=== PATIENT | male | born 1965 | race Two or more races ===

== ENCOUNTER 2018-06-22 16:51 | Inpatient (IN) | payer OTHER ==
[2018-06-22 21:46] VITALS: BMI 22.6
[2018-06-22] MEDS ORDERED: MELATONIN 5 MG TABLETS PO PRN (22:00)
[2018-06-22] MEDS ORDERED: P-EPHED 60MG/TRIPROLIDI 2.5MG TABLET PO PRN (22:03)
[2018-06-22] MEDS ORDERED: chlordiazePOXIDE HCL 25 MG CAPSULE PO PRN (22:03)
[2018-06-22] MEDS ORDERED: LOPERAMIDE HCL 2 MG CAPSULE PO PRN (22:03)
[2018-06-22] MEDS ORDERED: hydrOXYzine PAMOATE 50 MG CAPSULE (FP) PO PRN (22:03)
[2018-06-22] MEDS ORDERED: MAGNESIUM HYDROX 2400MG/30ML ORAL SUSPENSION 30 ML CUP PO PRN (22:03)
[2018-06-22] MEDS ORDERED: ACETAMINOPHEN 325 MG TABLET (FP) PO PRN (22:03)
[2018-06-22] MEDS ORDERED: MENTHOL/PHENOL 1 EACH UD MM PRN (22:03)
[2018-06-22] MEDS ORDERED: guaiFENesin/D-METHORPHAN HB 10 ML UNIT-DOSE CUPS PO PRN (22:03)
[2018-06-22] MEDS ORDERED: MAGNESIUM CITRATE 300 ML BOTTLE PO PRN (22:03)
--- NOTE | 2018-06-22 22:12 | HP ---
CIWA Score Nausea/Vomitin-Mild Nausea/No Vomiting Muscle Tremors: 4-Moderate,w/Arms Extend Anxiety: 4-Mod. Anxious/Guarded Agitation: 4-Moderately Restless Paroxysmal Sweats: 3 Orientation: 3-Disoriented Date>2 days Tacttile Disturbances: 3-Moderate Itch/Numb/Burn Auditory Disturbances: 1-Very Mild Visual Disturbances: 1-Very Mild Sensitivity Headache: 2-Mild CIWA-Ar Total Score: 26 - Admission Criteria [facility]ASAS Guidelines: Admission for Medically Managed Detox: Requires at least one of the followin. CIWA greater than 12 2. Seizures within the past 24 hours 3. Delirium tremens within the past 24 hours 4. Hallucinations within the past 24 hours 5. Acute intervention needed for co occurring medical disorder 6. Acute intervention needed for co occurring psychiatric disorder 7. Severe withdrawal that cannot be handled at a lower level of care (continued vomiting, continued diarrhea, abnormal vital signs) requiring intravenous medication and/or fluids 8. Patient presents the following: CIWA greater than 12, Seizures, delirium tremens or hallucinations in the past 12 hours Admission Criteria Met: Admission criteria met Admission ROS [facility] - [facility] Chief Complaint: c/o worsening withdrawal sx's. seeking detox Allergies/Adverse Reactions: Allergies Allergy/AdvReac Type Severity Reaction Status Date / Time No Known Allergies Allergy Verified 06/22/18 22:05 History of Present Illness: 53 Y.O. MALE WITH HX/O ALCOHOLISM HERE FOR DETOX. CLIENT IS KNOWN TO THIS PROGRAM. LAST HERE 2014. SELF REFERRED TODAY. PRESENTS WITH C/O WITHDRAWAL SX' S. CIWA 27. DENIES MEDICAL/PSYCH HX. REPORTS LONGEST CLEAN TIME 8 MONTHS. DENIES RECENT CLEAN TIME OR INPATIENT SUBSTANCE ABUSE TXMENT. CURRENTLY HOMELESS, UNEMPLOLYED, DENIES LEGALS. CLIENT IS SPEAKING [employer] USE FOR HX INTAKE Exam Limitations: Language Barrier (SYRIAC SPEAKING) - Ebola screening Have you traveled outside of the country in the last 21 days: No Have you had contact with anyone from an Ebola affected area: No Have you been sick,other than usual withdrawal symptoms: No Do you have a fever: No - Review of Systems Constitutional: Chills, Loss of Appetite, Night Sweats, Changes in sleep, Unintentional Wgt. Loss EENT: reports: Dental Problems (MISSING TEETH) Respiratory: reports: No Symptoms reported Cardiac: reports: No Symptoms Reported GI: reports: Nausea, Poor Appetite, Poor Fluid Intake, Vomiting, Abdominal cramping : reports: No Symptoms Reported Musculoskeletal: reports: Joint Pain Integumentary: reports: Flushing Neuro: reports: Numbness, Tingling, Tremors, Unsteady Gait, Other (BLACK OUTS) Endocrine: reports: No Symptoms Reported Hematology: reports: No Symptoms Reported Psychiatric: reports: Orientated x3, Agitated, Anxious, Depressed Other Systems: Reviewed and Negative Patient History - Patient Medical History Hx Anemia: No Hx Asthma: No Hx Chronic Obstructive Pulmonary Disease (COPD): No Hx Cancer: No Hx Cardiac Disorders: No Hx Hypertension: No Hx Hypercholesterolemia: No Hx Pacemaker: No HX Cerebrovascular Accident: No Hx Seizures: No Hx Dementia: No Hx Diabetes: No Hx Gastrointestinal Disorders: No Hx Liver Disease: Yes (ENLARGED) Hx Genitourinary Disorders: No Hx Sexually Transmitted Disorders: No Hx Renal Disease (ESRD): No Hx Thyroid Disease: No Hx Human Immunodeficiency Virus (HIV): No Hx Hepatitis C: No Hx Depression: Yes (NO CURRENT MED) Hx Suicide Attempt: Yes Hx Schizophrenia: No Other Medical History: HX/O PANCREATITIS - Patient Surgical History Past Surgical History: No Hx Neurologic Surgery: No Hx Cataract Extraction: No Hx Cardiac Surgery: No Hx Lung Surgery: No Hx Breast Surgery: No Hx Breast Biopsy: No Hx Abdominal Surgery: No Hx Appendectomy: No Hx Cholecystectomy: No Hx Genitourinary Surgery: No Hx Section: No Hx Orthopedic Surgery: No Anesthesia Reaction: No - PPD History Previous Implant?: Yes Documented Results: Negative w/proof Implanted On Prior [facility] Admission?: Yes Date: 04/07/15 Results: 0MM PPD to be Administered?: Yes - Smoking Cessation Smoking history: Former smoker Have you smoked in the past 12 months: No Aproximately how many cigarettes per day: 8 If you are a former smoker, when did you quit?: 02/05 Cigars Per Day: 0 Hx Chewing Tobacco Use: No Initiated information on smoking cessation: No - Substance & Tx. History Hx Alcohol Use: Yes Hx Substance Use: Yes Substance Use Type: Alcohol Hx Substance Use Treatment: Yes ([facility]) - Substances Abused Alcohol Route: Oral Frequency: Daily Amount used: 2 pint of vodka Age of first use: 14 Date of Last Use: 06/21/18 Family Disease History - Family Disease History Family Disease History: Diabetes: Father Admission Physical Exam [facility] - Vital Signs Vital Signs: Vital Signs - 24 hr 06/22/18 21:44 Temperature 98.8 F Pulse Rate 105 H Respiratory 18 Rate Blood Pressure 117/84 - Physical General Appearance: Yes: Appropriately Dressed, Mild Distress, Tremorous, Irritable, Other (SYRIAC SPEAKING) HEENTM: Yes: EOMI, Normocephalic, Normal Voice, HENNY, Pharynx Normal, Nasal Congestion, Other (POOR DENTITION) Respiratory: Yes: Chest Non-Tender, Lungs Clear, Normal Breath Sounds, No Respiratory Distress, No Accessory Muscle Use Neck: Yes: No masses,lesions,Nodules, Supple, Trachea in good position Breast: Yes: Breast Exam Deferred Cardiology: Yes: Regular Rhythm, Regular Rate, S1, S2 Abdominal: Yes: Normal Bowel Sounds, Non Tender, Flat, Soft Genitourinary: Yes: Other (NO C/O) Back: Yes: Normal Inspection Musculoskeletal: Yes: full range of Motion, Gait Steady Extremities: Yes: Normal Capillary Refill, Normal Range of Motion, Non-Tender, Tremors Neurological: Yes: zinc miner II-XII NML intact, Fully Oriented, Alert, Motor Strength 5/5, Depressed Affect Integumentary: Yes: Warm, Other (FLUSHED) Lymphatic: Yes: Within Normal Limits - Diagnostic (1) Former smoker Current Visit: Yes Status: Chronic (2) Homelessness Current Visit: Yes Status: Suspected (3) Alcohol dependence with uncomplicated withdrawal Current Visit: Yes Status: Chronic (4) Croatian speaking patient Current Visit: Yes Status: Chronic Cleared for Admission [facility] - Detox or Rehab [facility] Level of Care: Medically Managed Detox Regimen/Protocol: Librium Claeared for Rehab Admission: No [facility] Breath Alcohol Content Breath Alcohol Content: 0.360 Urine Drug Screen - Results Drug Screen Negative: No Urine Drug Screen Results: BZO-Benzodiazepines
[2018-06-23] MEDS: chlordiazePOXIDE HCL 25 MG CAPSULE PO SCH ×5 (00:18→22:21)
[2018-06-23 04:41] LABS: URINE APPEARANCE CLEAR; URINE BILIRUBIN NEGATIVE (<2.0 mg/dL); URINE COLOR YELLOW; URINE GLUCOSE (UA) NEGATIVE (NEGATIVE); URINE KETONE NEGATIVE (NEGATIVE); URINE LEUK ESTERASE NEGATIVE (NEGATIVE); URINE NITRITE NEGATIVE (NEGATIVE); URINE PROTEIN 1+ (NEGATIVE); URINE UROBILINOGEN NEGATIVE mg/dL (0.2-1.0)
[2018-06-23 04:47] LABS: URINE BACTERIA FEW /hpf (NONE SEEN); URINE MUCUS FEW
[2018-06-23 10:32] LABS: HEMATOCRIT 37.6 % (35.4-49); HEMOGLOBIN 12.9 GM/dL (11.7-16.9); MCH 32.8 pg (25.7-33.7); MCHC 34.2 g/dl (32.0-35.9); MEAN CELL VOLUME 95.9 fl (80-96); MEAN PLT VOLUME 8.2 fl (7.5-11.1); PLATELET COUNT 265 K/MM3 (134-434); RBC 3.92 M/mm3 (4.00-5.60); WHITE BLOOD COUNT 5.6 K/mm3 (4.0-10.0)
[2018-06-23 10:43] LABS: ALK PHOS 85 U/L (45-117); ANION GAP 15 MMOL/L (8-16); BILIRUBIN,TOTAL 0.7 mg/dL (0.2-1); BLOOD UREA NITROGEN 23 mg/dL (7-18); CALCIUM 8.7 mg/dL (8.5-10.1); CHLORIDE 100 mmol/L (98-107); CO2 25 mmol/L (21-32); CREATININE 1.1 mg/dL (0.55-1.3); GLUCOSE,RANDOM 73 mg/dL (74-106); SGOT/AST 57 U/L (15-37); SGPT/ALT 52 U/L (13-61); SODIUM 140 mmol/L (136-145); TOT PROT 7.2 g/dl (6.4-8.2)
[2018-06-23] MEDS: PRENATAL VITAMINS W/ FOLIC ACID TABLET (FP) PO SCH (12:13)
--- NOTE | 2018-06-23 14:19 | EKG ---
Test Reason : Blood Pressure : / mmHG Vent. Rate : 095 BPM Atrial Rate : 095 BPM P-R Int : 138 ms QRS Dur : 090 ms QT Int : 340 ms P-R-T Axes : 078 046 060 degrees QTc Int : 427 ms NORMAL SINUS RHYTHM NORMAL ECG NO PREVIOUS ECGS AVAILABLE Confirmed by ANDREWS GOULD, JENIFER ([id number]) on 06/23/2018 2:18:52 PM Referred By: Confirmed By:JENIFER SPARROW MD
--- NOTE | 2018-06-23 16:45 | PN ---
S CIWA - CIWA Score Nausea/Vomitin-No Nausea/No Vomiting Muscle Tremors: None Anxiety: 2 Agitation: 0-Normal Activity Paroxysmal Sweats: 3 Orientation: 2-Disoriented Date<2 days Tacttile Disturbances: 2-Mild Itch/Numbness/Burn Auditory Disturbances: 1-Very Mild Visual Disturbances: 2-Mild Sensitivity Headache: 3-Moderate CIWA-Ar Total Score: 15 S Progress Note (SOAP) Subjective: Sweating, H/A, Stomach Cramping, Interrupted Sleep. Objective: PATIENT A & O X 2 (UNCERTAIN ABOUT CURRENT DAY / DATE). PATIENT OBSERVED AMBULATING ON UNIT. IN NO ACUTE DISTRESS. 06/23/18 16:42 Vital Signs Temperature 98.8 F 06/23/18 13:21 Pulse Rate 87 06/23/18 13:30 Respiratory Rate 18 06/23/18 13:21 Blood Pressure 138/82 06/23/18 13:21 O2 Sat by Pulse Oximetry (%) Laboratory Tests 06/22/18 06/23/18 06/23/18 21:51 07:00 07:00 WBC 5.6 RBC 3.92 L Hgb 12.9 Hct 37.6 MCV 95.9 MCH 32.8 MCHC 34.2 RDW 15.0 Plt Count 265 D MPV 8.2 D Sodium 140 Potassium 4.0 Chloride 100 Carbon Dioxide 25 Anion Gap 15 BUN 23 H Creatinine 1.1 Creat Clearance w eGFR > 60 Random Glucose 73 L Calcium 8.7 Total Bilirubin 0.7 AST 57 H ALT 52 Alkaline Phosphatase 85 Total Protein 7.2 Albumin 4.0 Urine Color Yellow Urine Appearance Clear Urine pH 5.0 D Ur Specific [place] 1.027 Urine Protein 1+ H Urine Glucose (UA) Negative Urine Ketones Negative Urine Blood Negative Urine Nitrite Negative Urine Bilirubin Negative Urine Urobilinogen Negative Ur Leukocyte Esterase Negative Urine WBC (Auto) 3 Urine RBC (Auto) 1 Urine Bacteria Few Urine Mucus Few RPR Titer 06/23/18 07:00 WBC RBC Hgb Hct MCV MCH MCHC RDW Plt Count MPV Sodium Potassium Chloride Carbon Dioxide Anion Gap BUN Creatinine Creat Clearance w eGFR Random Glucose Calcium Total Bilirubin AST ALT Alkaline Phosphatase Total Protein Albumin Urine Color Urine Appearance Urine pH Ur Specific [place] Urine Protein Urine Glucose (UA) Urine Ketones Urine Blood Urine Nitrite Urine Bilirubin Urine Urobilinogen Ur Leukocyte Esterase Urine WBC (Auto) Urine RBC (Auto) Urine Bacteria Urine Mucus RPR Titer Nonreactive LABS NOTED. Assessment: 06/23/18 16:42 WITHDRAWAL SYMPTOMS. Plan: CONTINUE DETOX. INCREASE DAILY PO FLUID INTAKE.
[2018-06-23] MEDS: THIAMINE HCL 100 MG TABLET (FP) PO SCH (22:21)
[2018-06-23] MEDS: MAG HYDROX/AL HYDROX/SIMETH 30 ML UNIT-DOSE CUP PO PRN (22:23)
[2018-06-24] MEDS: chlordiazePOXIDE HCL 25 MG CAPSULE PO SCH ×3 (05:26→17:39)
[2018-06-24] MEDS: PRENATAL VITAMINS W/ FOLIC ACID TABLET (FP) PO SCH (10:18)
--- NOTE | 2018-06-24 13:45 | PN ---
[facility] CIWA - CIWA Score Nausea/Vomitin-Mild Nausea/No Vomiting Muscle Tremors: 3 Anxiety: 2 Agitation: 1-Slight > Activity Paroxysmal Sweats: 2 Orientation: 0-Oriented Tacttile Disturbances: 2-Mild Itch/Numbness/Burn Auditory Disturbances: 0-None Visual Disturbances: 0-None Headache: 0-None Present CIWA-Ar Total Score: 11 S Progress Note (SOAP) Subjective: interrupted sleep,shakes, rt ankle pain Objective: 06/24/18 13:43 Vital Signs Temperature 99 F 06/24/18 09:49 Pulse Rate 81 06/24/18 09:49 Respiratory Rate 18 06/24/18 09:49 Blood Pressure 138/86 06/24/18 09:49 O2 Sat by Pulse Oximetry (%) Laboratory Tests 06/22/18 06/23/18 06/23/18 21:51 07:00 07:00 WBC 5.6 RBC 3.92 L Hgb 12.9 Hct 37.6 MCV 95.9 MCH 32.8 MCHC 34.2 RDW 15.0 Plt Count 265 D MPV 8.2 D Sodium 140 Potassium 4.0 Chloride 100 Carbon Dioxide 25 Anion Gap 15 BUN 23 H Creatinine 1.1 Creat Clearance w eGFR > 60 Random Glucose 73 L Calcium 8.7 Total Bilirubin 0.7 AST 57 H ALT 52 Alkaline Phosphatase 85 Total Protein 7.2 Albumin 4.0 Urine Color Yellow Urine Appearance Clear Urine pH 5.0 D Ur Specific [place] 1.027 Urine Protein 1+ H Urine Glucose (UA) Negative Urine Ketones Negative Urine Blood Negative Urine Nitrite Negative Urine Bilirubin Negative Urine Urobilinogen Negative Ur Leukocyte Esterase Negative Urine WBC (Auto) 3 Urine RBC (Auto) 1 Urine Bacteria Few Urine Mucus Few RPR Titer 06/23/18 07:00 WBC RBC Hgb Hct MCV MCH MCHC RDW Plt Count MPV Sodium Potassium Chloride Carbon Dioxide Anion Gap BUN Creatinine Creat Clearance w eGFR Random Glucose Calcium Total Bilirubin AST ALT Alkaline Phosphatase Total Protein Albumin Urine Color Urine Appearance Urine pH Ur Specific [place] Urine Protein Urine Glucose (UA) Urine Ketones Urine Blood Urine Nitrite Urine Bilirubin Urine Urobilinogen Ur Leukocyte Esterase Urine WBC (Auto) Urine RBC (Auto) Urine Bacteria Urine Mucus RPR Titer Nonreactive pt aox3 in nad ambulating Assessment: 06/24/18 13:44 withdrawal sx's rt ankle discomfort Plan: cont. detox increase fluids motrin prn
[2018-06-24] MEDS: IBUPROFEN 400 MG TABLET (FP) PO PRN (17:43)
[2018-06-25] MEDS: chlordiazePOXIDE 5 MG CAPSULE PO SCH ×4 (00:27→17:20)
[2018-06-25] MEDS: THIAMINE HCL 100 MG TABLET (FP) PO SCH ×2 (00:27→22:29)
[2018-06-25] MEDS: MAG HYDROX/AL HYDROX/SIMETH 30 ML UNIT-DOSE CUP PO PRN (05:49)
[2018-06-25] MEDS: PRENATAL VITAMINS W/ FOLIC ACID TABLET (FP) PO SCH (10:24)
--- NOTE | 2018-06-25 11:43 | PN ---
S Progress Note (SOAP) Subjective: Epigastric pain,tremors, sweats,interrupted sleep and right ankle pain Objective: 06/25/18 11:40 Vital Signs 06/25/18 06/25/18 06:44 09:20 Temperature 97.5 F L 96.4 F L Pulse Rate 63 66 Respiratory 18 18 Rate Blood Pressure 116/75 127/92 Laboratory Last Values WBC 5.6 K/mm3 (4.0-10.0) 06/23/18 07:00 RBC 3.92 M/mm3 (4.00-5.60) L 06/23/18 07:00 Hgb 12.9 GM/dL (11.7-16.9) 06/23/18 07:00 Hct 37.6 % (35.4-49) 06/23/18 07:00 MCV 95.9 fl (80-96) 06/23/18 07:00 MCH 32.8 pg (25.7-33.7) 06/23/18 07:00 MCHC 34.2 g/dl (32.0-35.9) 06/23/18 07:00 RDW 15.0 % (11.9-15.9) 06/23/18 07:00 Plt Count 265 K/MM3 (134-434) D 06/23/18 07:00 MPV 8.2 fl (7.5-11.1) D 06/23/18 07:00 Sodium 140 mmol/L (136-145) 06/23/18 07:00 Potassium 4.0 mmol/L (3.5-5.1) 06/23/18 07:00 Chloride 100 mmol/L (98-107) 06/23/18 07:00 Carbon Dioxide 25 mmol/L (21-32) 06/23/18 07:00 Anion Gap 15 MMOL/L (8-16) 06/23/18 07:00 BUN 23 mg/dL (7-18) H 06/23/18 07:00 Creatinine 1.1 mg/dL (0.55-1.3) 06/23/18 07:00 Creat Clearance w eGFR > 60 (>60) 06/23/18 07:00 Random Glucose 73 mg/dL (74-106) L 06/23/18 07:00 Calcium 8.7 mg/dL (8.5-10.1) 06/23/18 07:00 Total Bilirubin 0.7 mg/dL (0.2-1) 06/23/18 07:00 AST 57 U/L (15-37) H 06/23/18 07:00 ALT 52 U/L (13-61) 06/23/18 07:00 Alkaline Phosphatase 85 U/L (45-117) 06/23/18 07:00 Total Protein 7.2 g/dl (6.4-8.2) 06/23/18 07:00 Albumin 4.0 g/dl (3.4-5.0) 06/23/18 07:00 Urine Color Yellow 06/22/18 21:51 Urine Appearance Clear 06/22/18 21:51 Urine pH 5.0 (5.0-8.0) D 06/22/18 21:51 Ur Specific [place] 1.027 (1.010-1.035) 06/22/18 21:51 Urine Protein 1+ (NEGATIVE) H 06/22/18 21:51 Urine Glucose (UA) Negative (NEGATIVE) 06/22/18 21:51 Urine Ketones Negative (NEGATIVE) 06/22/18 21:51 Urine Blood Negative (NEGATIVE) 06/22/18 21:51 Urine Nitrite Negative (NEGATIVE) 06/22/18 21:51 Urine Bilirubin Negative (<2.0 mg/dL) 06/22/18 21:51 Urine Urobilinogen Negative mg/dL (0.2-1.0) 06/22/18 21:51 Ur Leukocyte Esterase Negative (NEGATIVE) 06/22/18 21:51 Urine WBC (Auto) 3 /hpf (3-5) 06/22/18 21:51 Urine RBC (Auto) 1 /hpf (0-3) 06/22/18 21:51 Urine Bacteria Few /hpf (NONE SEEN) 06/22/18 21:51 Urine Mucus Few 06/22/18 21:51 RPR Titer Nonreactive (NONREACTIVE) 06/23/18 07:00 Labs noted, no panic values Epigastric pain, BS x 4, no abdominal tenderness or guarding Assessment: 06/25/18 11:42 Withdrawal sx Possible GERD Plan: Continue detox Start protonix 40mg PO QD
[2018-06-25] MEDS: PANTOPRAZOLE 40 MG TABLET (FP) PO SCH (13:50)
[2018-06-25] MEDS: chlordiazePOXIDE HCL 10 MG CAPSULE PO SCH (22:29)
[2018-06-26] MEDS: chlordiazePOXIDE HCL 10 MG CAPSULE PO SCH ×2 (06:22→10:25)
[2018-06-26] MEDS: IBUPROFEN 400 MG TABLET (FP) PO PRN (06:23)
[2018-06-26] MEDS: PRENATAL VITAMINS W/ FOLIC ACID TABLET (FP) PO SCH (10:25)
[2018-06-26] MEDS: PANTOPRAZOLE 40 MG TABLET (FP) PO SCH (10:25)
--- NOTE | 2018-06-26 10:59 | DS ---
[facility] Detox Discharge Summary Admission Date: 06/22/18 Discharge Date: 06/26/18 - History Present History: Alcohol Dependence Pertinent Past History: pt did well with detox. Says his feet are dry and would like skin lotion- pt to discuss with rehab, to be discharged today PE- dry scaly skin bottom of feet - Physical Exam Results Vital Signs: Vital Signs Temperature 97.5 F L 06/26/18 09:24 Pulse Rate 80 06/26/18 09:24 Respiratory Rate 18 06/26/18 09:24 Blood Pressure 108/72 06/26/18 09:24 O2 Sat by Pulse Oximetry (%) - Treatment Hospital Course: Detox Protocol Followed, Detoxed Safely, Responded well, Discharged Condition Good, Rehab Referral Accepted - Medication Discharge Medications: Ambulatory Orders NK [No Known Home Medication] 04/05/15 - AMA Did Patient Leave Against Medical Advice: No
[2018-06-26 13:51] VITALS: BP 119/76; PULSE 89; TEMP 99.1
== END 2018-06-26 14:01 | disposition other institution (70) | DRG 775 ==
LOC: YASAS 16:51 → Y6N 22:49
PROVIDERS: ADMIT Neuromusculoskeletal Medicine & OMM; ATTEND Neuromusculoskeletal Medicine & OMM
PROC: HZ2ZZZZ Detoxification Services for Substance Abuse Treatment (ICD-10-PCS; principal; 2018-06-22)
DX: F10.230 Alcohol dependence with withdrawal, uncomplicated (principal); K21.9 Gastro-esophageal reflux disease without esophagitis; M25.571 Pain in right ankle and joints of right foot; Z87.891 Personal history of nicotine dependence; Z59.0 Homelessness
CPT/HCPCS: 36415; 80053; 81003; 81015; 85027; 86593; 93005; 93010

== ENCOUNTER 2018-06-26 14:53 | Inpatient (IN) | payer OTHER ==
[2018-06-26] MEDS ORDERED: hydrOXYzine PAMOATE 50 MG CAPSULE (FP) PO PRN (17:25)
[2018-06-26] MEDS ORDERED: MAGNESIUM HYDROX 2400MG/30ML ORAL SUSPENSION 30 ML CUP PO PRN (17:25)
[2018-06-26] MEDS ORDERED: guaiFENesin/D-METHORPHAN HB 10 ML UNIT-DOSE CUPS PO PRN (17:25)
[2018-06-26] MEDS ORDERED: LOPERAMIDE HCL 2 MG CAPSULE PO PRN (17:25)
[2018-06-26] MEDS ORDERED: MENTHOL/PHENOL 1 EACH UD MM PRN (17:25)
[2018-06-26] MEDS ORDERED: MAGNESIUM CITRATE 300 ML BOTTLE PO PRN (17:25)
[2018-06-26] MEDS ORDERED: MAG HYDROX/AL HYDROX/SIMETH 30 ML UNIT-DOSE CUP PO PRN (17:25)
[2018-06-26] MEDS ORDERED: P-EPHED 60MG/TRIPROLIDI 2.5MG TABLET PO PRN (17:25)
[2018-06-26] MEDS ORDERED: ACETAMINOPHEN 325 MG TABLET (FP) PO PRN (17:25)
--- NOTE | 2018-06-26 17:25 | HP ---
[facility] Rehab Assess/Revision - Admission History Admitted to Rehab from: [facility] Date of Admission to Rehab: 06/26/18 - Vital signs Vital Signs: Vital Signs Period Temp Pulse Resp BP Sys/Cook Pulse Ox Last 24 Hr 97.5 F 95 18 132/81 - Findings Detox History & Physical reviewed: Yes Concur with findings: Yes Comments/Additional Findings: for rehab as protocol Inpatient Rehab Admission - Initial Determination Are CD services needed?: Yes Free of communicable disease: Yes Not in need of hospitalization: Yes - Rehab Admission Criteria Previous failed treatment: Yes Poor recovery environment: Yes Comorbidities: Yes Lacks judgement: No Patient is meeting Inpatient Rehab admission criteria:: Yes
[2018-06-26] MEDS: THIAMINE HCL 100 MG TABLET (FP) PO SCH (21:40)
[2018-06-26] MEDS: MELATONIN 5 MG TABLETS PO PRN (21:40)
--- NOTE | 2018-06-27 09:47 | PN ---
S Progress Note Note: PATIENT SEEN FOR RIGHT ANKLE PAIN. PATIENT STATES HE TWISTED HIS RIGHT ANKLE PRIOR TO ADMISSION. PATIENT DID NOT HAVE ANKLE EVALUATED IN ER OR BY PCP PRIOR TO ADMISSION. PATIENT NOW STATES RIGHT ANKLE IS PAINFUL, 6/10. NON-RADIATING AND STATES PAIN IS A DULL ACHE. Vital Signs Temperature 98.1 F 06/27/18 07:00 Pulse Rate 76 06/27/18 07:00 Respiratory Rate 18 06/27/18 07:00 Blood Pressure 116/74 06/27/18 07:00 O2 Sat by Pulse Oximetry (%) PE: ALERT AND ORIENTED X 3 SKIN WARM, + DRY CRACKED HEELS EXT LEFT FOOT/ANKLE WITH NO EDEMA, NO SWELLING OR REDNESS RIGHT ANKLE +SWELLING, MILD REDNESS AND TENDERNESS AMB AD JOSH WITHOUT DEVICE, ALTHOUGH GUARDED A/P DRY SKIN RIGHT ANKLE PAIN/SWELLING/MILD REDNESS WILL START LAC HYDRIN LOTION CONTINUE IBU/APAP PRN RIGHT ANKLE XRAY ORDERED CONTINUE TO MONITOR CLINICALLY
[2018-06-27] MEDS: PRENATAL VITAMINS W/ FOLIC ACID TABLET (FP) PO SCH (09:53)
[2018-06-27] MEDS: IBUPROFEN 400 MG TABLET (FP) PO PRN ×2 (09:53→21:22)
[2018-06-27] MEDS: AMMONIUM LACTATE 12% LOTION 225 GM BOTTLE TP SCH ×2 (10:03→21:23)
[2018-06-27] MEDS: THIAMINE HCL 100 MG TABLET (FP) PO SCH (21:21)
[2018-06-28] MEDS: PRENATAL VITAMINS W/ FOLIC ACID TABLET (FP) PO SCH (09:56)
[2018-06-28] MEDS: AMMONIUM LACTATE 12% LOTION 225 GM BOTTLE TP SCH ×2 (09:56→21:29)
[2018-06-28] MEDS: IBUPROFEN 400 MG TABLET (FP) PO PRN (09:57)
[2018-06-28] MEDS ORDERED: PT OWN MED DRAWER 7, Y5N ONE (20:08)
[2018-06-28] MEDS: THIAMINE HCL 100 MG TABLET (FP) PO SCH (21:29)
[2018-06-29] MEDS: PRENATAL VITAMINS W/ FOLIC ACID TABLET (FP) PO SCH (09:55)
[2018-06-29] MEDS: AMMONIUM LACTATE 12% LOTION 225 GM BOTTLE TP SCH ×2 (09:56→23:12)
--- NOTE | 2018-06-29 11:14 | PN ---
[facility] Progress Note Note: PATIENT SEEN FOR FOLLOW UP RIGHT ANKLE XRAY. PATIENT STATES PAIN COMES AND GOES. DENIES ANY PAINTO RIGHT ANKLE OR LEG DURING EXAM. Vital Signs Temperature 98.2 F 06/29/18 06:49 Pulse Rate 95 H 06/29/18 06:49 Respiratory Rate 20 06/29/18 06:49 Blood Pressure 118/63 06/29/18 06:49 O2 Sat by Pulse Oximetry (%) PE: ALERT AND ORIENTED X 3 SKIN WARM AND DRY EXT FULL ROM, + MILD SWELLING OF RIGHT ANKLE CONTINUES, NO BRUISING OR REDNESS NOTED AMB AD JOSH XRAY RESULTS SHOW MINIMAL LATERAL SWELLING, CALCIFICATION OR OLD AVULSION INFERIOR TO LATERAL MALLEOLUS. A/P: RIGHT ANKLE SWELLING, CHRONIC CONTINUE IBUPROFEN PRN PATIENT INFORMED OF RESULTS AND STRONGLY ADVISED TO FOLLOW UP WITH PCP ONCE D/C FOR ORTHO CONSULT LEG ELEVATION WHILE IN BED/CHAIR CONTINUE TO MONITOR CLINICALLY
[2018-06-29] MEDS: THIAMINE HCL 100 MG TABLET (FP) PO SCH (23:12)
[2018-06-30] MEDS: PRENATAL VITAMINS W/ FOLIC ACID TABLET (FP) PO SCH (10:42)
[2018-06-30] MEDS: IBUPROFEN 400 MG TABLET (FP) PO PRN (10:43)
[2018-06-30] MEDS: AMMONIUM LACTATE 12% LOTION 225 GM BOTTLE TP SCH ×2 (10:44→21:20)
[2018-06-30] MEDS ORDERED: PT OWN MED DRAWER 7, Y5N ONE ×2 (10:45→19:52)
[2018-06-30] MEDS: THIAMINE HCL 100 MG TABLET (FP) PO SCH (21:19)
[2018-06-30] MEDS: MELATONIN 5 MG TABLETS PO PRN (21:19)
[2018-07-01] MEDS: PRENATAL VITAMINS W/ FOLIC ACID TABLET (FP) PO SCH (10:06)
[2018-07-01] MEDS: AMMONIUM LACTATE 12% LOTION 225 GM BOTTLE TP SCH ×2 (10:06→21:10)
[2018-07-01] MEDS: THIAMINE HCL 100 MG TABLET (FP) PO SCH (21:10)
[2018-07-01] MEDS: MELATONIN 5 MG TABLETS PO PRN (21:10)
[2018-07-02] MEDS: PRENATAL VITAMINS W/ FOLIC ACID TABLET (FP) PO SCH (09:37)
[2018-07-02] MEDS: AMMONIUM LACTATE 12% LOTION 225 GM BOTTLE TP SCH ×2 (09:38→21:59)
[2018-07-02] MEDS ORDERED: PT OWN MED DRAWER 7, Y5N ONE ×2 (19:23→22:36)
[2018-07-02] MEDS: THIAMINE HCL 100 MG TABLET (FP) PO SCH (21:59)
[2018-07-03] MEDS ORDERED: PT OWN MED DRAWER 7, Y5N ONE (08:28)
[2018-07-03] MEDS: PRENATAL VITAMINS W/ FOLIC ACID TABLET (FP) PO SCH (09:54)
[2018-07-03] MEDS: AMMONIUM LACTATE 12% LOTION 225 GM BOTTLE TP SCH ×2 (09:54→21:48)
[2018-07-03] MEDS: IBUPROFEN 400 MG TABLET (FP) PO PRN ×2 (09:55→21:46)
[2018-07-03] MEDS: MELATONIN 5 MG TABLETS PO PRN (21:45)
[2018-07-03] MEDS: THIAMINE HCL 100 MG TABLET (FP) PO SCH (21:45)
[2018-07-04] MEDS: AMMONIUM LACTATE 12% LOTION 225 GM BOTTLE TP SCH ×2 (09:54→22:00)
[2018-07-04] MEDS: PRENATAL VITAMINS W/ FOLIC ACID TABLET (FP) PO SCH (09:54)
[2018-07-04] MEDS ORDERED: PT OWN MED DRAWER 7, Y5N ONE (19:10)
[2018-07-04] MEDS: THIAMINE HCL 100 MG TABLET (FP) PO SCH (21:08)
[2018-07-04] MEDS: MELATONIN 5 MG TABLETS PO PRN (21:08)
[2018-07-04] MEDS: IBUPROFEN 400 MG TABLET (FP) PO PRN (21:08)
[2018-07-05] MEDS: PRENATAL VITAMINS W/ FOLIC ACID TABLET (FP) PO SCH (09:51)
[2018-07-05] MEDS: IBUPROFEN 400 MG TABLET (FP) PO PRN (09:52)
[2018-07-05] MEDS: AMMONIUM LACTATE 12% LOTION 225 GM BOTTLE TP SCH ×2 (10:23→21:57)
[2018-07-05] MEDS: THIAMINE HCL 100 MG TABLET (FP) PO SCH (21:13)
[2018-07-05] MEDS: MELATONIN 5 MG TABLETS PO PRN (21:14)
[2018-07-06] MEDS: AMMONIUM LACTATE 12% LOTION 225 GM BOTTLE TP SCH ×2 (10:04→21:05)
[2018-07-06] MEDS: PRENATAL VITAMINS W/ FOLIC ACID TABLET (FP) PO SCH (10:04)
[2018-07-06] MEDS: IBUPROFEN 400 MG TABLET (FP) PO PRN (10:05)
[2018-07-06] MEDS: THIAMINE HCL 100 MG TABLET (FP) PO SCH (21:04)
[2018-07-06] MEDS: MELATONIN 5 MG TABLETS PO PRN (21:04)
[2018-07-07] MEDS: PRENATAL VITAMINS W/ FOLIC ACID TABLET (FP) PO SCH (10:16)
[2018-07-07] MEDS: AMMONIUM LACTATE 12% LOTION 225 GM BOTTLE TP SCH ×2 (10:16→21:14)
[2018-07-07] MEDS: THIAMINE HCL 100 MG TABLET (FP) PO SCH (21:12)
[2018-07-07] MEDS: IBUPROFEN 400 MG TABLET (FP) PO PRN (21:13)
[2018-07-08] MEDS: PRENATAL VITAMINS W/ FOLIC ACID TABLET (FP) PO SCH (10:16)
[2018-07-08] MEDS: AMMONIUM LACTATE 12% LOTION 225 GM BOTTLE TP SCH ×2 (10:16→21:21)
[2018-07-08] MEDS: IBUPROFEN 400 MG TABLET (FP) PO PRN ×2 (10:16→21:20)
[2018-07-08] MEDS: MELATONIN 5 MG TABLETS PO PRN (21:19)
[2018-07-08] MEDS: THIAMINE HCL 100 MG TABLET (FP) PO SCH (21:19)
[2018-07-09] MEDS: IBUPROFEN 400 MG TABLET (FP) PO PRN ×2 (10:09→21:51)
[2018-07-09] MEDS: PRENATAL VITAMINS W/ FOLIC ACID TABLET (FP) PO SCH (10:09)
[2018-07-09] MEDS: AMMONIUM LACTATE 12% LOTION 225 GM BOTTLE TP SCH ×2 (10:10→21:57)
[2018-07-09] MEDS: THIAMINE HCL 100 MG TABLET (FP) PO SCH (21:51)
[2018-07-10] MEDS: PRENATAL VITAMINS W/ FOLIC ACID TABLET (FP) PO SCH (09:37)
[2018-07-10] MEDS: AMMONIUM LACTATE 12% LOTION 225 GM BOTTLE TP SCH ×2 (09:37→22:09)
[2018-07-10] MEDS: IBUPROFEN 400 MG TABLET (FP) PO PRN ×2 (09:38→21:16)
[2018-07-10] MEDS: THIAMINE HCL 100 MG TABLET (FP) PO SCH (21:16)
[2018-07-10] MEDS: MELATONIN 5 MG TABLETS PO PRN (21:16)
[2018-07-11] MEDS: PRENATAL VITAMINS W/ FOLIC ACID TABLET (FP) PO SCH (10:26)
[2018-07-11] MEDS: IBUPROFEN 400 MG TABLET (FP) PO PRN ×2 (10:26→21:51)
[2018-07-11] MEDS: AMMONIUM LACTATE 12% LOTION 225 GM BOTTLE TP SCH ×2 (10:27→21:51)
[2018-07-11] MEDS: THIAMINE HCL 100 MG TABLET (FP) PO SCH (21:51)
[2018-07-12] MEDS: PRENATAL VITAMINS W/ FOLIC ACID TABLET (FP) PO SCH (10:35)
[2018-07-12] MEDS: IBUPROFEN 400 MG TABLET (FP) PO PRN ×2 (10:36→21:38)
[2018-07-12] MEDS: AMMONIUM LACTATE 12% LOTION 225 GM BOTTLE TP SCH ×2 (10:38→21:37)
[2018-07-12] MEDS ORDERED: PT OWN MED DRAWER 7, Y5N ONE ×2 (10:38→19:27)
[2018-07-12] MEDS: THIAMINE HCL 100 MG TABLET (FP) PO SCH (21:37)
[2018-07-13] MEDS: PRENATAL VITAMINS W/ FOLIC ACID TABLET (FP) PO SCH (10:13)
[2018-07-13] MEDS: IBUPROFEN 400 MG TABLET (FP) PO PRN ×2 (10:14→21:07)
[2018-07-13] MEDS: AMMONIUM LACTATE 12% LOTION 225 GM BOTTLE TP SCH ×2 (10:15→21:55)
[2018-07-13] MEDS: THIAMINE HCL 100 MG TABLET (FP) PO SCH (21:06)
[2018-07-14] MEDS: PRENATAL VITAMINS W/ FOLIC ACID TABLET (FP) PO SCH (10:10)
[2018-07-14] MEDS: AMMONIUM LACTATE 12% LOTION 225 GM BOTTLE TP SCH ×2 (10:11→21:20)
[2018-07-14] MEDS: IBUPROFEN 400 MG TABLET (FP) PO PRN ×2 (10:11→21:21)
[2018-07-14] MEDS: THIAMINE HCL 100 MG TABLET (FP) PO SCH (21:20)
[2018-07-14] MEDS: MELATONIN 5 MG TABLETS PO PRN (21:20)
[2018-07-15] MEDS: PRENATAL VITAMINS W/ FOLIC ACID TABLET (FP) PO SCH (10:12)
[2018-07-15] MEDS: AMMONIUM LACTATE 12% LOTION 225 GM BOTTLE TP SCH ×2 (10:13→21:29)
[2018-07-15] MEDS: THIAMINE HCL 100 MG TABLET (FP) PO SCH (21:28)
[2018-07-15] MEDS: IBUPROFEN 400 MG TABLET (FP) PO PRN (21:29)
[2018-07-16] MEDS: PRENATAL VITAMINS W/ FOLIC ACID TABLET (FP) PO SCH (09:54)
[2018-07-16] MEDS: AMMONIUM LACTATE 12% LOTION 225 GM BOTTLE TP SCH ×2 (09:55→21:49)
[2018-07-16] MEDS: IBUPROFEN 400 MG TABLET (FP) PO PRN ×2 (09:56→21:49)
[2018-07-16] MEDS: THIAMINE HCL 100 MG TABLET (FP) PO SCH (21:48)
[2018-07-16] MEDS: MELATONIN 5 MG TABLETS PO PRN (21:49)
[2018-07-17] MEDS: PRENATAL VITAMINS W/ FOLIC ACID TABLET (FP) PO SCH (09:56)
[2018-07-17] MEDS: AMMONIUM LACTATE 12% LOTION 225 GM BOTTLE TP SCH ×2 (09:57→21:49)
[2018-07-17] MEDS: MELATONIN 5 MG TABLETS PO PRN (21:21)
[2018-07-17] MEDS: THIAMINE HCL 100 MG TABLET (FP) PO SCH (21:22)
[2018-07-17] MEDS: IBUPROFEN 400 MG TABLET (FP) PO PRN (21:22)
[2018-07-18] MEDS: AMMONIUM LACTATE 12% LOTION 225 GM BOTTLE TP SCH ×2 (10:03→22:28)
[2018-07-18] MEDS: PRENATAL VITAMINS W/ FOLIC ACID TABLET (FP) PO SCH (10:03)
[2018-07-18] MEDS: THIAMINE HCL 100 MG TABLET (FP) PO SCH (21:26)
[2018-07-18] MEDS: MELATONIN 5 MG TABLETS PO PRN (21:26)
[2018-07-18] MEDS: IBUPROFEN 400 MG TABLET (FP) PO PRN (21:27)
[2018-07-19] MEDS: AMMONIUM LACTATE 12% LOTION 225 GM BOTTLE TP SCH ×2 (10:00→21:11)
[2018-07-19] MEDS: PRENATAL VITAMINS W/ FOLIC ACID TABLET (FP) PO SCH (10:00)
[2018-07-19] MEDS: IBUPROFEN 400 MG TABLET (FP) PO PRN ×2 (10:00→21:10)
--- NOTE | 2018-07-19 11:41 | PN ---
[facility] Progress Note Note: PATIENT SEEN FOR C/O FULLNESS OF LEFT EAR AFTER CLEANING WITH [employer]. PATIENT DENIES HEARING LOSS AND PAIN TO EARS. Vital Signs Temperature 98.1 F 07/19/18 06:52 Pulse Rate 70 07/19/18 06:52 Respiratory Rate 18 07/19/18 06:52 Blood Pressure 120/76 07/19/18 06:52 O2 Sat by Pulse Oximetry (%) PE: ALERT AND ORIENTED X 3 SKIN WARM AND DRY RIGHT EAR TM INTACT, CANAL PATENT. NO REDNESS OR DISCHARGE LEFT EAR + BROWN CERUMEN IN EAR CANAL, TM PARTIALLY VISIBLE, INTACT AND WITHOUT REDNESS AND DISCHARGE A/P: CERUMEN IMPACTION WILL START DEBROX GTTS TO AU X 7 DAYS CONTINUE TO MONITOR
[2018-07-19] MEDS: CARBAMIDE PEROXIDE 6.5% OTIC 15 ML BOTTLE AU SCH ×2 (12:25→21:11)
[2018-07-19] MEDS: THIAMINE HCL 100 MG TABLET (FP) PO SCH (21:10)
[2018-07-19] MEDS: MELATONIN 5 MG TABLETS PO PRN (21:11)
[2018-07-20] MEDS ORDERED: PT OWN MED DRAWER 7, Y5N ONE (08:39)
[2018-07-20] MEDS: PRENATAL VITAMINS W/ FOLIC ACID TABLET (FP) PO SCH (10:13)
[2018-07-20] MEDS: AMMONIUM LACTATE 12% LOTION 225 GM BOTTLE TP SCH ×2 (10:13→21:47)
[2018-07-20] MEDS: CARBAMIDE PEROXIDE 6.5% OTIC 15 ML BOTTLE AU SCH ×2 (10:13→21:47)
[2018-07-20] MEDS: MELATONIN 5 MG TABLETS PO PRN (21:47)
[2018-07-20] MEDS: THIAMINE HCL 100 MG TABLET (FP) PO SCH (21:47)
[2018-07-21] MEDS: CARBAMIDE PEROXIDE 6.5% OTIC 15 ML BOTTLE AU SCH ×2 (10:19→21:55)
[2018-07-21] MEDS: PRENATAL VITAMINS W/ FOLIC ACID TABLET (FP) PO SCH (10:19)
[2018-07-21] MEDS: AMMONIUM LACTATE 12% LOTION 225 GM BOTTLE TP SCH ×2 (10:20→21:55)
[2018-07-21] MEDS: IBUPROFEN 400 MG TABLET (FP) PO PRN ×2 (10:21→21:54)
[2018-07-21] MEDS: THIAMINE HCL 100 MG TABLET (FP) PO SCH (21:54)
[2018-07-21] MEDS: MELATONIN 5 MG TABLETS PO PRN (21:54)
[2018-07-22] MEDS: PRENATAL VITAMINS W/ FOLIC ACID TABLET (FP) PO SCH (10:26)
[2018-07-22] MEDS: AMMONIUM LACTATE 12% LOTION 225 GM BOTTLE TP SCH ×2 (10:26→21:14)
[2018-07-22] MEDS: CARBAMIDE PEROXIDE 6.5% OTIC 15 ML BOTTLE AU SCH ×2 (10:27→21:13)
[2018-07-22] MEDS: MELATONIN 5 MG TABLETS PO PRN (21:12)
[2018-07-22] MEDS: THIAMINE HCL 100 MG TABLET (FP) PO SCH (21:12)
[2018-07-22] MEDS ORDERED: PT OWN MED DRAWER 7, Y5N ONE (21:13)
[2018-07-22] MEDS: IBUPROFEN 400 MG TABLET (FP) PO PRN (21:13)
[2018-07-23] MEDS: IBUPROFEN 400 MG TABLET (FP) PO PRN (10:26)
[2018-07-23] MEDS: CARBAMIDE PEROXIDE 6.5% OTIC 15 ML BOTTLE AU SCH ×2 (10:27→21:31)
[2018-07-23] MEDS: AMMONIUM LACTATE 12% LOTION 225 GM BOTTLE TP SCH ×2 (10:27→21:34)
[2018-07-23] MEDS: PRENATAL VITAMINS W/ FOLIC ACID TABLET (FP) PO SCH (10:27)
[2018-07-23] MEDS: THIAMINE HCL 100 MG TABLET (FP) PO SCH (21:31)
[2018-07-23] MEDS: MELATONIN 5 MG TABLETS PO PRN (21:31)
[2018-07-23] MEDS ORDERED: PT OWN MED DRAWER 7, Y5N ONE (21:34)
[2018-07-24 06:58] VITALS: TEMP 98
[2018-07-24] MEDS: PRENATAL VITAMINS W/ FOLIC ACID TABLET (FP) PO SCH (09:41)
[2018-07-24] MEDS: IBUPROFEN 400 MG TABLET (FP) PO PRN ×2 (09:41→21:43)
[2018-07-24] MEDS: CARBAMIDE PEROXIDE 6.5% OTIC 15 ML BOTTLE AU SCH ×2 (09:42→21:42)
[2018-07-24] MEDS: AMMONIUM LACTATE 12% LOTION 225 GM BOTTLE TP SCH ×2 (09:42→21:44)
[2018-07-24] MEDS: THIAMINE HCL 100 MG TABLET (FP) PO SCH (21:42)
[2018-07-24] MEDS: MELATONIN 5 MG TABLETS PO PRN (21:43)
[2018-07-25 07:04] VITALS: BP 121/77; PULSE 67
[2018-07-25] MEDS ORDERED: PT OWN MED DRAWER 7, Y5N ONE ×2 (08:44→09:50)
--- NOTE | 2018-07-25 09:24 | PN ---
S Progress Note Note: REHAB DISCHARGE NOTE: PATIENT FOR DISCHARGE TODAY FROM REHAB. AT THIS TIME, PATIENT IS PENDING BED AVAILABILITY AT [facility] AND WILL FOLLOW UP WITH AA GROUP MEETINGS IN MEANTIME. PATIENT REPORTS ACCOMPLISHING ALL REHAB GOALS AND IS MOTIVATED TO STAY SOBER. PATIENT ENCOURAGED TO ATTEND AA TO PREVENT RELASPE AND TO FOLLOW UP WITH PCP WITHIN ONE WEEK OF D/C TO CONTINUE MEDICAL MANAGEMENT. PATIENT D/C MEDICALLY STABLE AND DENIES SI/HI. Vital Signs Temperature 98.0 F 07/24/18 06:57 Pulse Rate 67 07/25/18 07:03 Respiratory Rate 18 07/25/18 07:03 Blood Pressure 121/77 07/25/18 07:03 O2 Sat by Pulse Oximetry (%)
[2018-07-25] MEDS: IBUPROFEN 400 MG TABLET (FP) PO PRN (09:46)
[2018-07-25] MEDS: PRENATAL VITAMINS W/ FOLIC ACID TABLET (FP) PO SCH (09:46)
== END 2018-07-25 09:55 | disposition home or self-care (01) | DRG 772 ==
LOC: YASAS 14:53 → Y3W 14:55
PROVIDERS: ADMIT Psychiatry & Neurology Psychiatry; ATTEND Psychiatry & Neurology Psychiatry
PROC: HZ42ZZZ Group Counseling for Substance Abuse Treatment, Cognitive-Behavioral (ICD-10-PCS; principal; 2018-06-26)
DX: F10.20 Alcohol dependence, uncomplicated (principal); Z87.891 Personal history of nicotine dependence; Z59.0 Homelessness
CPT/HCPCS: 73610-TC-RT-FY

== ENCOUNTER 2018-09-12 15:37 | Inpatient (IN) | payer OTHER ==
[2018-09-12 20:40] VITALS: BMI 22.8
--- NOTE | 2018-09-12 21:39 | HP ---
CIWA Score - Admission Criteria [facility]ASAS Guidelines: Admission for Medically Managed Detox: Requires at least one of the followin. CIWA greater than 12 2. Seizures within the past 24 hours 3. Delirium tremens within the past 24 hours 4. Hallucinations within the past 24 hours 5. Acute intervention needed for co occurring medical disorder 6. Acute intervention needed for co occurring psychiatric disorder 7. Severe withdrawal that cannot be handled at a lower level of care (continued vomiting, continued diarrhea, abnormal vital signs) requiring intravenous medication and/or fluids 8. Admission ROS S - HPI Chief Complaint: Seeking admission to Rehab Allergies/Adverse Reactions: Allergies Allergy/AdvReac Type Severity Reaction Status Date / Time No Known Allergies Allergy Verified 09/12/18 20:33 History of Present Illness: 53 years old male with a lilly g history of alcohol dependence is seeking admission to Rehab. Patient was referred from [facility] where he was admitted 08/28/2018 - 09/12/2018. He has medical history of GERD and Depression. He reports suicide attempt in 2012 and denies suicidal ideation at this time. He was in Rehab. 06/26/2018- 07/25/2018 at [facility]. Exam Limitations: No Limitations - Ebola screening Have you traveled outside of the country in the last 21 days: No Have you had contact with anyone from an Ebola affected area: No Have you been sick,other than usual withdrawal symptoms: No Do you have a fever: No - Review of Systems Constitutional: No Symptoms Reported EENT: reports: No Symptoms Reported Respiratory: reports: No Symptoms reported Cardiac: reports: No Symptoms Reported GI: reports: No Symptoms Reported : reports: No Symptoms Reported Musculoskeletal: reports: No Symptoms Reported Integumentary: reports: No Symptoms Reported Neuro: reports: No Symptoms reported Endocrine: reports: No Symptoms Reported Hematology: reports: No Symptoms Reported Psychiatric: reports: No Sypmtoms Reported, Mood/Affect Appropiate, Orientated x3 Other Systems: Reviewed and Negative Patient History - Patient Medical History Hx Anemia: No Hx Asthma: No Hx Chronic Obstructive Pulmonary Disease (COPD): No Hx Cancer: No Hx Cardiac Disorders: No Hx Hypertension: No Hx Hypercholesterolemia: No Hx Pacemaker: No HX Cerebrovascular Accident: No Hx Seizures: No Hx Dementia: No Hx Diabetes: No Hx Gastrointestinal Disorders: Yes (GERD - not on medication) Hx Liver Disease: No Hx Genitourinary Disorders: No Hx Sexually Transmitted Disorders: No Hx Renal Disease (ESRD): No Hx Thyroid Disease: No Hx Human Immunodeficiency Virus (HIV): No Hx Hepatitis C: No Hx Depression: Yes (Not on medication) Hx Suicide Attempt: No Hx Schizophrenia: No - Patient Surgical History Past Surgical History: No Hx Neurologic Surgery: No Hx Cataract Extraction: No Hx Cardiac Surgery: No Hx Lung Surgery: No Hx Breast Surgery: No Hx Breast Biopsy: No Hx Abdominal Surgery: No Hx Appendectomy: No Hx Cholecystectomy: No Hx Genitourinary Surgery: No Hx Section: No Hx Orthopedic Surgery: No Anesthesia Reaction: No - PPD History Documented Results: Negative w/proof Date: 06/25/18 Results: 0MM PPD to be Administered?: No - Reproductive History Patient is a Female of Child Bearing Age (11 -55 yrs old): No (Male) - Smoking Cessation Smoking history: Former smoker Have you smoked in the past 12 months: No Aproximately how many cigarettes per day: 8 If you are a former smoker, when did you quit?: 02/05 Cigars Per Day: 0 Hx Chewing Tobacco Use: No Initiated information on smoking cessation: Yes 'Breaking Loose' booklet given: 09/12/18 - Substance & Tx. History Hx Alcohol Use: No Hx Substance Use: No Hx Substance Use Treatment: Yes - Substances abused Alcohol Substance route: Oral Frequency: Daily Amount used: 2PINTS VODKA Age of first use: 17 Date of last use: 08/27/18 Family Disease History - Family Disease History Family Disease History: Diabetes: Father Admission Physical Exam [facility] - Vital Signs Vital Signs: Vital Signs - 24 hr 09/12/18 20:37 Temperature 98.2 F Pulse Rate 81 Respiratory 18 Rate Blood Pressure 113/73 - Physical General Appearance: Yes: Within Normal Limits HEENTM: Yes: Within Normal Limits Respiratory: Yes: Within Normal Limits Neck: Yes: Within Normal Limits Breast: Yes: Breasts Symetrical Cardiology: Yes: Within Normal Limits Abdominal: Yes: Within Normal Limits Genitourinary: Yes: Within Normal Limits Back: Yes: Within Normal Limits Musculoskeletal: Yes: Within Normal Limits Extremities: Yes: Within Normal Limits Neurological: Yes: Within Normal Limits Integumentary: Yes: Within Normal Limits Lymphatic: Yes: Within Normal Limits - Diagnostic (1) Former smoker Current Visit: No Status: Chronic (2) Nicotine dependence Current Visit: Yes Status: Chronic Qualifiers: Nicotine product type: cigarettes Substance use status: uncomplicated Qualified Code(s): F17.210 - Nicotine dependence, cigarettes, uncomplicated (3) Homelessness Current Visit: Yes Status: Suspected Cleared for Admission S - Detox or Rehab [facility] Level of Care: Observation Bed Claeared for Rehab Admission: Yes Breathalyzer - Breathalyzer Breathalyzer: 0 Urine Drug Screen - Test Device Lot number: [id number] Expiration date: 04/22/20 - Control Is test valid?: Yes - Results Drug screen NEGATIVE: No Urine drug screen results: BZO-Benzodiazepines Inpatient Rehab Admission - Rehab Decision to Admit Inpatient rehab admission?: Yes - Initial Determination Are CD services needed?: No Free of communicable disease: Yes Not in need of hospitalization: Yes - Rehab Admission Criteria Previous failed treatment: Yes Poor recovery environment: Yes Comorbidities: Yes Lacks judgement: No Patient is meeting Inpatient Rehab admission criteria:: Yes
[2018-09-12] MEDS ORDERED: LOPERAMIDE HCL 2 MG CAPSULE PO PRN (21:47)
[2018-09-12] MEDS ORDERED: guaiFENesin 200 MG/10 ML 10 ML UNIT-DOSE CUPS PO PRN (21:47)
[2018-09-12] MEDS ORDERED: MENTHOL/PHENOL 1 EACH UD MM PRN (21:47)
[2018-09-12] MEDS ORDERED: MAGNESIUM CITRATE 300 ML BOTTLE PO PRN (21:47)
[2018-09-12] MEDS ORDERED: MAGNESIUM HYDROX 2400MG/30ML ORAL SUSPENSION 30 ML CUP PO PRN (21:47)
[2018-09-12] MEDS ORDERED: ACETAMINOPHEN 325 MG TABLET (FP) PO PRN (21:47)
[2018-09-12] MEDS ORDERED: P-EPHED 60MG/TRIPROLIDI 2.5MG TABLET PO PRN (21:47)
[2018-09-12] MEDS: THIAMINE HCL 100 MG TABLET (FP) PO SCH (23:14)
[2018-09-12] MEDS: IBUPROFEN 400 MG TABLET (FP) PO PRN (23:15)
[2018-09-12] MEDS: MELATONIN 5 MG TABLETS PO PRN (23:15)
[2018-09-13] MEDS: PRENATAL VITAMINS W/ FOLIC ACID TABLET (FP) PO SCH (10:39)
[2018-09-13] MEDS: LIDOCAINE 5% TOPICAL PATCH TP SCH (10:39)
[2018-09-13] MEDS: IBUPROFEN 400 MG TABLET (FP) PO PRN ×2 (11:43→22:06)
[2018-09-13] MEDS: THIAMINE HCL 100 MG TABLET (FP) PO SCH (22:05)
[2018-09-13] MEDS: MELATONIN 5 MG TABLETS PO PRN (22:06)
[2018-09-13] MEDS: hydrOXYzine PAMOATE 25 MG CAPSULE (FP) PO PRN (22:07)
[2018-09-14] MEDS: LIDOCAINE 5% TOPICAL PATCH TP SCH (09:53)
[2018-09-14] MEDS: PRENATAL VITAMINS W/ FOLIC ACID TABLET (FP) PO SCH (09:54)
[2018-09-14] MEDS: IBUPROFEN 600 MG TABLET (FP) PO PRN ×2 (09:55→21:07)
[2018-09-14] MEDS: MELATONIN 5 MG TABLETS PO PRN (21:06)
[2018-09-14] MEDS: THIAMINE HCL 100 MG TABLET (FP) PO SCH (21:06)
[2018-09-15] MEDS: PRENATAL VITAMINS W/ FOLIC ACID TABLET (FP) PO SCH (10:08)
[2018-09-15] MEDS: LIDOCAINE 5% TOPICAL PATCH TP SCH (10:08)
[2018-09-15] MEDS: hydrOXYzine PAMOATE 25 MG CAPSULE (FP) PO PRN (10:08)
[2018-09-15] MEDS: IBUPROFEN 600 MG TABLET (FP) PO PRN ×2 (10:09→21:33)
[2018-09-15] MEDS: HYDROCORTISONE 1% TOPICAL OINT 30 GM TUBE TP PRN ×2 (10:09→21:34)
[2018-09-15] MEDS: THIAMINE HCL 100 MG TABLET (FP) PO SCH (21:32)
[2018-09-15] MEDS: MELATONIN 5 MG TABLETS PO PRN (21:32)
[2018-09-15] MEDS ORDERED: PT OWN MED DRAWER 7, Y5N ONE (21:34)
[2018-09-16] MEDS: PRENATAL VITAMINS W/ FOLIC ACID TABLET (FP) PO SCH (10:06)
[2018-09-16] MEDS: LIDOCAINE 5% TOPICAL PATCH TP SCH (10:06)
[2018-09-16] MEDS: IBUPROFEN 600 MG TABLET (FP) PO PRN ×2 (10:07→21:02)
[2018-09-16] MEDS: THIAMINE HCL 100 MG TABLET (FP) PO SCH (21:01)
[2018-09-16] MEDS: MELATONIN 5 MG TABLETS PO PRN (21:03)
[2018-09-17] MEDS: IBUPROFEN 600 MG TABLET (FP) PO PRN ×2 (10:26→22:36)
[2018-09-17] MEDS: PRENATAL VITAMINS W/ FOLIC ACID TABLET (FP) PO SCH (10:26)
[2018-09-17] MEDS: LIDOCAINE 5% TOPICAL PATCH TP SCH (10:27)
[2018-09-17] MEDS: MELATONIN 5 MG TABLETS PO PRN (22:35)
[2018-09-17] MEDS: THIAMINE HCL 100 MG TABLET (FP) PO SCH (22:35)
[2018-09-18] MEDS: LIDOCAINE 5% TOPICAL PATCH TP SCH (10:14)
[2018-09-18] MEDS: HYDROCORTISONE 1% TOPICAL OINT 30 GM TUBE TP PRN ×2 (10:14→21:09)
[2018-09-18] MEDS: PRENATAL VITAMINS W/ FOLIC ACID TABLET (FP) PO SCH (10:14)
[2018-09-18] MEDS: IBUPROFEN 600 MG TABLET (FP) PO PRN ×2 (10:15→21:08)
[2018-09-18] MEDS: hydrOXYzine PAMOATE 25 MG CAPSULE (FP) PO PRN (21:07)
[2018-09-18] MEDS: THIAMINE HCL 100 MG TABLET (FP) PO SCH (21:07)
[2018-09-18] MEDS: MELATONIN 5 MG TABLETS PO PRN (21:07)
[2018-09-19] MEDS: PRENATAL VITAMINS W/ FOLIC ACID TABLET (FP) PO SCH (09:45)
[2018-09-19] MEDS: LIDOCAINE 5% TOPICAL PATCH TP SCH (09:45)
[2018-09-19] MEDS: hydrOXYzine PAMOATE 25 MG CAPSULE (FP) PO PRN (09:45)
[2018-09-19] MEDS: IBUPROFEN 600 MG TABLET (FP) PO PRN ×2 (09:45→21:14)
[2018-09-19] MEDS: HYDROCORTISONE 1% TOPICAL OINT 30 GM TUBE TP PRN (09:47)
[2018-09-19] MEDS: THIAMINE HCL 100 MG TABLET (FP) PO SCH (21:13)
[2018-09-19] MEDS: MELATONIN 5 MG TABLETS PO PRN (21:13)
[2018-09-20] MEDS: IBUPROFEN 600 MG TABLET (FP) PO PRN ×2 (09:59→21:56)
[2018-09-20] MEDS: LIDOCAINE 5% TOPICAL PATCH TP SCH (09:59)
[2018-09-20] MEDS: PRENATAL VITAMINS W/ FOLIC ACID TABLET (FP) PO SCH (09:59)
[2018-09-20] MEDS: THIAMINE HCL 100 MG TABLET (FP) PO SCH (21:56)
[2018-09-20] MEDS: MELATONIN 5 MG TABLETS PO PRN (21:57)
[2018-09-21] MEDS: IBUPROFEN 600 MG TABLET (FP) PO PRN ×2 (10:20→21:42)
[2018-09-21] MEDS: LIDOCAINE 5% TOPICAL PATCH TP SCH (10:20)
[2018-09-21] MEDS: PRENATAL VITAMINS W/ FOLIC ACID TABLET (FP) PO SCH (10:21)
[2018-09-21] MEDS ORDERED: PT OWN MED DRAWER 7, Y5N ONE (10:22)
[2018-09-21] MEDS: THIAMINE HCL 100 MG TABLET (FP) PO SCH (21:42)
[2018-09-21] MEDS: MELATONIN 5 MG TABLETS PO PRN (21:42)
[2018-09-22] MEDS: PRENATAL VITAMINS W/ FOLIC ACID TABLET (FP) PO SCH (10:11)
[2018-09-22] MEDS: HYDROCORTISONE 1% TOPICAL OINT 30 GM TUBE TP PRN (10:11)
[2018-09-22] MEDS: IBUPROFEN 600 MG TABLET (FP) PO PRN ×2 (10:12→21:06)
[2018-09-22] MEDS: LIDOCAINE 5% TOPICAL PATCH TP SCH (10:13)
[2018-09-22] MEDS: MELATONIN 5 MG TABLETS PO PRN (21:06)
[2018-09-22] MEDS: THIAMINE HCL 100 MG TABLET (FP) PO SCH (22:59)
[2018-09-23] MEDS: IBUPROFEN 600 MG TABLET (FP) PO PRN ×2 (09:47→21:01)
[2018-09-23] MEDS: LIDOCAINE 5% TOPICAL PATCH TP SCH (09:47)
[2018-09-23] MEDS: PRENATAL VITAMINS W/ FOLIC ACID TABLET (FP) PO SCH (10:29)
--- NOTE | 2018-09-23 10:39 | PN ---
[facility] Progress Note Note: PATIENT C/O RIGHT SHOULDER DISCOMFORT, LEVEL 5/10, NON-RADIATING. PATIENT DENIES ANY RECENT INJURIES/FALLS. PATIENT REPORTS DISCOMFORT WORSE AT NIGHT. Vital Signs Temperature 98.5 F 09/23/18 06:35 Pulse Rate 77 09/23/18 06:35 Respiratory Rate 18 09/23/18 06:35 Blood Pressure 130/82 09/23/18 06:35 O2 Sat by Pulse Oximetry (%) PE: ALERT AND ORIENTED X 3 SKIN WARM AND DRY EXT NO VISIBLE SWELLING OR REDNESS, RT SHOULDER +ROM, +RADIAL PULSE, MILD TACTILE TENDERNESS TO RIGHT SHOULDER AMB AD JOSH A/P: RIGHT SHOULDER DISCOMFORT WILL ORDER BENGAY OINTMENT TP TO RIGHT SHOULDER HS CHECK RIGHT SHOULDER XRAY TO BE DONE TODAY CONTINUE TO MONITOR CLINICALLY
[2018-09-23] MEDS: MELATONIN 5 MG TABLETS PO PRN (21:00)
[2018-09-23] MEDS: THIAMINE HCL 100 MG TABLET (FP) PO SCH (21:00)
[2018-09-23] MEDS: METHYL SALICYLATE/MENTHOL OINT 30 GM TUBE TP SCH (21:02)
[2018-09-24] MEDS: LIDOCAINE 5% TOPICAL PATCH TP SCH (09:45)
[2018-09-24] MEDS: IBUPROFEN 600 MG TABLET (FP) PO PRN ×2 (09:45→21:06)
[2018-09-24] MEDS: PRENATAL VITAMINS W/ FOLIC ACID TABLET (FP) PO SCH (09:45)
[2018-09-24] MEDS: METHYL SALICYLATE/MENTHOL OINT 30 GM TUBE TP SCH (21:06)
[2018-09-24] MEDS: THIAMINE HCL 100 MG TABLET (FP) PO SCH (21:06)
[2018-09-25] MEDS: LIDOCAINE 5% TOPICAL PATCH TP SCH (09:37)
[2018-09-25] MEDS: PRENATAL VITAMINS W/ FOLIC ACID TABLET (FP) PO SCH (09:37)
[2018-09-25] MEDS: IBUPROFEN 600 MG TABLET (FP) PO PRN ×2 (09:38→21:49)
[2018-09-25] MEDS: THIAMINE HCL 100 MG TABLET (FP) PO SCH (21:49)
[2018-09-25] MEDS: MELATONIN 5 MG TABLETS PO PRN (21:49)
[2018-09-25] MEDS: METHYL SALICYLATE/MENTHOL OINT 30 GM TUBE TP SCH (21:50)
--- NOTE | 2018-09-26 10:00 | PN ---
S Progress Note Note: Right shoulder XRAY negative for any acute abnormalities. Will continue Lidocaine patch and PRN Ibuprofen for pain management. Vital Signs Temperature 98.5 F 09/26/18 06:42 Pulse Rate 77 09/26/18 06:42 Respiratory Rate 18 09/26/18 06:42 Blood Pressure 125/77 09/26/18 06:42 O2 Sat by Pulse Oximetry (%)
[2018-09-26] MEDS: PRENATAL VITAMINS W/ FOLIC ACID TABLET (FP) PO SCH (10:03)
[2018-09-26] MEDS: IBUPROFEN 600 MG TABLET (FP) PO PRN ×2 (10:03→21:04)
[2018-09-26] MEDS: LIDOCAINE 5% TOPICAL PATCH TP SCH (10:08)
[2018-09-26] MEDS: MELATONIN 5 MG TABLETS PO PRN (21:03)
[2018-09-26] MEDS: THIAMINE HCL 100 MG TABLET (FP) PO SCH (21:03)
[2018-09-26] MEDS: METHYL SALICYLATE/MENTHOL OINT 30 GM TUBE TP SCH (21:48)
[2018-09-27] MEDS: HYDROCORTISONE 1% TOPICAL OINT 30 GM TUBE TP PRN (10:05)
[2018-09-27] MEDS: PRENATAL VITAMINS W/ FOLIC ACID TABLET (FP) PO SCH (10:05)
[2018-09-27] MEDS: IBUPROFEN 600 MG TABLET (FP) PO PRN ×2 (10:05→21:40)
[2018-09-27] MEDS: LIDOCAINE 5% TOPICAL PATCH TP SCH (10:07)
[2018-09-27] MEDS: MELATONIN 5 MG TABLETS PO PRN (21:40)
[2018-09-27] MEDS: THIAMINE HCL 100 MG TABLET (FP) PO SCH (21:40)
[2018-09-27] MEDS: METHYL SALICYLATE/MENTHOL OINT 30 GM TUBE TP SCH (21:44)
[2018-09-28] MEDS: IBUPROFEN 600 MG TABLET (FP) PO PRN ×2 (10:03→21:10)
[2018-09-28] MEDS: LIDOCAINE 5% TOPICAL PATCH TP SCH (10:03)
[2018-09-28] MEDS: PRENATAL VITAMINS W/ FOLIC ACID TABLET (FP) PO SCH (10:05)
[2018-09-28] MEDS: MELATONIN 5 MG TABLETS PO PRN (21:10)
[2018-09-28] MEDS: METHYL SALICYLATE/MENTHOL OINT 30 GM TUBE TP SCH (21:10)
[2018-09-28] MEDS: THIAMINE HCL 100 MG TABLET (FP) PO SCH (21:10)
[2018-09-29] MEDS: IBUPROFEN 600 MG TABLET (FP) PO PRN ×2 (09:35→21:05)
[2018-09-29] MEDS: PRENATAL VITAMINS W/ FOLIC ACID TABLET (FP) PO SCH (09:36)
[2018-09-29] MEDS: LIDOCAINE 5% TOPICAL PATCH TP SCH (09:36)
[2018-09-29] MEDS: MELATONIN 5 MG TABLETS PO PRN (21:05)
[2018-09-29] MEDS: THIAMINE HCL 100 MG TABLET (FP) PO SCH (21:05)
[2018-09-29] MEDS: METHYL SALICYLATE/MENTHOL OINT 30 GM TUBE TP SCH (21:41)
[2018-09-30] MEDS: LIDOCAINE 5% TOPICAL PATCH TP SCH (09:46)
[2018-09-30] MEDS: PRENATAL VITAMINS W/ FOLIC ACID TABLET (FP) PO SCH (09:46)
[2018-09-30] MEDS: MELATONIN 5 MG TABLETS PO PRN (21:40)
[2018-09-30] MEDS: IBUPROFEN 600 MG TABLET (FP) PO PRN (21:40)
[2018-09-30] MEDS: THIAMINE HCL 100 MG TABLET (FP) PO SCH (21:43)
[2018-09-30] MEDS: METHYL SALICYLATE/MENTHOL OINT 30 GM TUBE TP SCH (21:43)
[2018-10-01] MEDS: LIDOCAINE 5% TOPICAL PATCH TP SCH (09:59)
[2018-10-01] MEDS: PRENATAL VITAMINS W/ FOLIC ACID TABLET (FP) PO SCH (09:59)
[2018-10-01] MEDS: IBUPROFEN 600 MG TABLET (FP) PO PRN ×2 (09:59→21:07)
[2018-10-01] MEDS ORDERED: PT OWN MED DRAWER 7, Y5N ONE (19:53)
[2018-10-01] MEDS: METHYL SALICYLATE/MENTHOL OINT 30 GM TUBE TP SCH (21:06)
[2018-10-01] MEDS: THIAMINE HCL 100 MG TABLET (FP) PO SCH (21:07)
[2018-10-01] MEDS: MELATONIN 5 MG TABLETS PO PRN (21:07)
[2018-10-02] MEDS: LIDOCAINE 5% TOPICAL PATCH TP SCH (10:04)
[2018-10-02] MEDS: HYDROCORTISONE 1% TOPICAL OINT 30 GM TUBE TP PRN (10:06)
[2018-10-02] MEDS: IBUPROFEN 600 MG TABLET (FP) PO PRN ×2 (10:07→21:21)
[2018-10-02] MEDS ORDERED: PT OWN MED DRAWER 7, Y5N ONE (10:07)
[2018-10-02] MEDS: PRENATAL VITAMINS W/ FOLIC ACID TABLET (FP) PO SCH (10:26)
[2018-10-02] MEDS: MELATONIN 5 MG TABLETS PO PRN (21:20)
[2018-10-02] MEDS: METHYL SALICYLATE/MENTHOL OINT 30 GM TUBE TP SCH (21:20)
[2018-10-02] MEDS: THIAMINE HCL 100 MG TABLET (FP) PO SCH (21:20)
[2018-10-03] MEDS: PRENATAL VITAMINS W/ FOLIC ACID TABLET (FP) PO SCH (09:39)
[2018-10-03] MEDS: LIDOCAINE 5% TOPICAL PATCH TP SCH (09:39)
[2018-10-03] MEDS: IBUPROFEN 600 MG TABLET (FP) PO PRN ×2 (09:41→21:04)
[2018-10-03] MEDS: THIAMINE HCL 100 MG TABLET (FP) PO SCH (21:03)
[2018-10-03] MEDS: METHYL SALICYLATE/MENTHOL OINT 30 GM TUBE TP SCH (21:04)
[2018-10-03] MEDS: MELATONIN 5 MG TABLETS PO PRN (21:04)
[2018-10-04] MEDS: LIDOCAINE 5% TOPICAL PATCH TP SCH (09:50)
[2018-10-04] MEDS: IBUPROFEN 600 MG TABLET (FP) PO PRN ×2 (09:50→21:55)
[2018-10-04] MEDS: PRENATAL VITAMINS W/ FOLIC ACID TABLET (FP) PO SCH (09:50)
[2018-10-04] MEDS: MELATONIN 5 MG TABLETS PO PRN (21:53)
[2018-10-04] MEDS: METHYL SALICYLATE/MENTHOL OINT 30 GM TUBE TP SCH (21:53)
[2018-10-04] MEDS: THIAMINE HCL 100 MG TABLET (FP) PO SCH (21:53)
[2018-10-05] MEDS: PRENATAL VITAMINS W/ FOLIC ACID TABLET (FP) PO SCH (10:07)
[2018-10-05] MEDS: LIDOCAINE 5% TOPICAL PATCH TP SCH (10:07)
[2018-10-05] MEDS: IBUPROFEN 600 MG TABLET (FP) PO PRN ×2 (10:07→21:02)
[2018-10-05] MEDS: MAG HYDROX/AL HYDROX/SIMETH 30 ML UNIT-DOSE CUP PO PRN (21:02)
[2018-10-05] MEDS: MELATONIN 5 MG TABLETS PO PRN (21:02)
[2018-10-05] MEDS: THIAMINE HCL 100 MG TABLET (FP) PO SCH (21:02)
[2018-10-05] MEDS: METHYL SALICYLATE/MENTHOL OINT 30 GM TUBE TP SCH (21:42)
[2018-10-06] MEDS: PRENATAL VITAMINS W/ FOLIC ACID TABLET (FP) PO SCH (09:49)
[2018-10-06] MEDS: LIDOCAINE 5% TOPICAL PATCH TP SCH (09:49)
[2018-10-06] MEDS: IBUPROFEN 600 MG TABLET (FP) PO PRN ×2 (09:49→21:28)
[2018-10-06] MEDS: HYDROCORTISONE 1% TOPICAL OINT 30 GM TUBE TP PRN (09:49)
[2018-10-06] MEDS: MAG HYDROX/AL HYDROX/SIMETH 30 ML UNIT-DOSE CUP PO PRN ×2 (09:50→21:28)
[2018-10-06] MEDS ORDERED: PT OWN MED DRAWER 7, Y5N ONE (20:48)
[2018-10-06] MEDS: THIAMINE HCL 100 MG TABLET (FP) PO SCH (21:27)
[2018-10-06] MEDS: MELATONIN 5 MG TABLETS PO PRN (21:27)
[2018-10-06] MEDS: METHYL SALICYLATE/MENTHOL OINT 30 GM TUBE TP SCH (21:44)
--- NOTE | 2018-10-07 09:22 | PN ---
[facility] Progress Note Note: Patient scheduled for discharge 10/10/18. Patient has aftercare arranged at [facility]. Patient to continue with group meetings for alcohol dependence to prevent relapse and encouraged to follow up with PCP within one week of discharge to continue medical management. Patient states he feels better and accomplished all rehab goals. Patient is medically stable at this time and denies SI/HI. Vital Signs Temperature 98.2 F 10/07/18 07:01 Pulse Rate 86 10/07/18 07:01 Respiratory Rate 18 10/07/18 07:01 Blood Pressure 124/81 10/07/18 07:01 O2 Sat by Pulse Oximetry (%) Ambulatory Orders Lidocaine 5% Patch [Lidoderm Patch -] 1 patch TP DAILY 09/12/18 RX: Folic Acid 1 mg PO DAILY 09/12/18 Thiamine HCl [B-1] 100 mg PO DAILY 09/12/18
[2018-10-07] MEDS: IBUPROFEN 600 MG TABLET (FP) PO PRN ×2 (09:46→21:02)
[2018-10-07] MEDS: LIDOCAINE 5% TOPICAL PATCH TP SCH (09:46)
[2018-10-07] MEDS: PRENATAL VITAMINS W/ FOLIC ACID TABLET (FP) PO SCH (09:47)
[2018-10-07] MEDS: THIAMINE HCL 100 MG TABLET (FP) PO SCH (21:02)
[2018-10-07] MEDS: MELATONIN 5 MG TABLETS PO PRN (21:03)
[2018-10-07] MEDS ORDERED: PT OWN MED DRAWER 7, Y5N ONE (21:04)
[2018-10-07] MEDS: METHYL SALICYLATE/MENTHOL OINT 30 GM TUBE TP SCH (21:04)
[2018-10-08] MEDS: PRENATAL VITAMINS W/ FOLIC ACID TABLET (FP) PO SCH (10:17)
[2018-10-08] MEDS: LIDOCAINE 5% TOPICAL PATCH TP SCH (10:17)
[2018-10-08] MEDS: IBUPROFEN 600 MG TABLET (FP) PO PRN ×2 (10:19→21:56)
[2018-10-08] MEDS: MAG HYDROX/AL HYDROX/SIMETH 30 ML UNIT-DOSE CUP PO PRN ×2 (10:19→21:57)
[2018-10-08] MEDS: MELATONIN 5 MG TABLETS PO PRN (21:56)
[2018-10-08] MEDS: THIAMINE HCL 100 MG TABLET (FP) PO SCH (21:56)
[2018-10-09] MEDS: METHYL SALICYLATE/MENTHOL OINT 30 GM TUBE TP SCH ×2 (00:30→22:20)
[2018-10-09] MEDS: LIDOCAINE 5% TOPICAL PATCH TP SCH (09:41)
[2018-10-09] MEDS: PRENATAL VITAMINS W/ FOLIC ACID TABLET (FP) PO SCH (09:42)
[2018-10-09] MEDS: IBUPROFEN 600 MG TABLET (FP) PO PRN (09:43)
[2018-10-09] MEDS: MAG HYDROX/AL HYDROX/SIMETH 30 ML UNIT-DOSE CUP PO PRN (09:43)
--- NOTE | 2018-10-09 12:13 | PN ---
[facility] Progress Note Note: patient is scheduled for discharged tomorrow morning, requested d/c at 7AM has transportation arranged for that time. D/C order place.
[2018-10-09] MEDS ORDERED: PT OWN MED DRAWER 7, Y5N ONE (21:58)
[2018-10-09] MEDS: THIAMINE HCL 100 MG TABLET (FP) PO SCH (22:20)
[2018-10-10 06:44] VITALS: BP 123/84; PULSE 78; TEMP 98
--- NOTE | 2018-10-10 12:19 | PN ---
[facility] Progress Note Note: Patient d/c from Rehab at 7am this morning.
== END 2018-10-10 06:35 | disposition home or self-care (01) | DRG 772 ==
LOC: YASAS 15:37 → Y3W 21:46
PROVIDERS: ADMIT Neuromusculoskeletal Medicine & OMM; ATTEND Neuromusculoskeletal Medicine & OMM
PROC: HZ42ZZZ Group Counseling for Substance Abuse Treatment, Cognitive-Behavioral (ICD-10-PCS; principal; 2018-09-12)
DX: F10.20 Alcohol dependence, uncomplicated (principal); F17.210 Nicotine dependence, cigarettes, uncomplicated; F32.9 Major depressive disorder, single episode, unspecified; K21.9 Gastro-esophageal reflux disease without esophagitis; M25.511 Pain in right shoulder; Z59.0 Homelessness
CPT/HCPCS: 73030-TC-RT-FY

== ENCOUNTER 2022-10-07 22:05 | Inpatient (IN) | payer OTHER ==
[2022-10-07 23:00] VITALS: BMI 22.6
[2022-10-07] MEDS ORDERED: IBUPROFEN 600 MG TABLET (FP) PO PRN (23:27)
[2022-10-07] MEDS ORDERED: BISMUTH SUBSALICYLATE 524 MG/30 ML PO PRN (23:27)
[2022-10-07] MEDS ORDERED: POLYETHYLENE GLYCOL (HEALTHYLAX) 3350 17 GM PACKET PO PRN (23:27)
[2022-10-07] MEDS ORDERED: DICYCLOMINE HCL 10 MG CAPSULE PO PRN (23:27)
[2022-10-07] MEDS ORDERED: MAGNESIUM HYDROX 2400MG/30ML ORAL SUSPENSION 30 ML CUP PO PRN (23:27)
[2022-10-07] MEDS ORDERED: ONDANSETRON *ODT* 4 MG TABLET SL PRN (23:27)
[2022-10-07] MEDS ORDERED: MAG HYDROX/AL HYDROX/SIMETH 30 ML UNIT-DOSE CUP PO PRN (23:27)
[2022-10-07] MEDS ORDERED: BENZONATATE 200 MG CAPSULE PO PRN (23:27)
[2022-10-07] MEDS ORDERED: ACETAMINOPHEN 325 MG TABLET (FP) PO PRN (23:27)
[2022-10-07] MEDS ORDERED: NALOXONE HCL (KLOXXADO) 8 MG SPRAY NS PRN (23:27)
[2022-10-07] MEDS ORDERED: LOPERAMIDE HCL 2 MG CAPSULE PO PRN (23:27)
[2022-10-07] MEDS ORDERED: BENZOCAINE/MENTHOL (CHLORASEPTIC ) LOZENGE MM PRN (23:27)
[2022-10-07] MEDS ORDERED: IBUPROFEN 400 MG TABLET (FP) PO PRN (23:27)
[2022-10-07] MEDS ORDERED: NALOXONE HCL 0.4 MG/ML VIAL IM PRN (23:27)
[2022-10-07] MEDS ORDERED: guaiFENesin 600 MG TABLET.ER (FP) PO PRN (23:27)
[2022-10-08] MEDS: chlordiazePOXIDE HCL 25 MG CAPSULE PO SCH ×5 (01:44→22:42)
[2022-10-08] MEDS: chlordiazePOXIDE HCL 25 MG CAPSULE PO PRN ×2 (01:55→13:54)
[2022-10-08] MEDS: PRENATAL VITAMINS W/ FOLIC ACID TABLET (FP) PO SCH (10:29)
[2022-10-08 11:47] LABS: POTASSIUM 3.8 mmol/L (3.5-5.1)
[2022-10-08 11:48] LABS: HEMATOCRIT 35.3 % (35.4-49); HEMOGLOBIN 12.2 GM/dL (11.7-16.9); MCH 31.3 pg (25.7-33.7); MCHC 34.6 g/dl (32.0-35.9); MEAN CELL VOLUME 90.4 fl (80-96); MEAN PLT VOLUME 7.6 fl (7.5-11.1); PLATELET COUNT 221 10^3/uL (134-434); RDW 16.5 % (11.9-15.9); WHITE BLOOD COUNT 2.9 K/mm3 (4.0-10.0)
[2022-10-08 11:53] LABS: ALBUMIN 4.1 g/dl (3.4-5.0); BLOOD UREA NITROGEN 8.6 mg/dL (7-18)
[2022-10-08 11:56] LABS: CREATININE 0.8 mg/dL (0.55-1.3)
[2022-10-08 11:57] LABS: BILIRUBIN,TOTAL 1.6 mg/dL (0.2-1); TOT PROT 7.4 g/dl (6.4-8.2)
[2022-10-08 13:09] LABS: HIV INTERPRETATION NEGATIVE (NEGATIVE)
[2022-10-08] MEDS: MELATONIN 5 MG TABLETS PO SCH (22:41)
[2022-10-08] MEDS: THIAMINE HCL 100 MG TABLET (FP) PO SCH (22:41)
[2022-10-09] MEDS: chlordiazePOXIDE HCL 25 MG CAPSULE PO SCH ×4 (05:57→22:21)
[2022-10-09] MEDS: PRENATAL VITAMINS W/ FOLIC ACID TABLET (FP) PO SCH (10:39)
[2022-10-09] MEDS: MELATONIN 5 MG TABLETS PO SCH (22:21)
[2022-10-09] MEDS: THIAMINE HCL 100 MG TABLET (FP) PO SCH (22:21)
[2022-10-10] MEDS ORDERED: chlordiazePOXIDE HCL 10 MG CAPSULE PO PRN
[2022-10-10] MEDS: chlordiazePOXIDE HCL 10 MG CAPSULE PO SCH ×2 (05:25→10:30)
[2022-10-10 10:14] VITALS: RESP 18
[2022-10-10] MEDS: PRENATAL VITAMINS W/ FOLIC ACID TABLET (FP) PO SCH (10:29)
[2022-10-10 13:28] VITALS: BP 133/82; PULSE 83; TEMP 97.5
[2022-10-11] MEDS ORDERED: chlordiazePOXIDE HCL 10 MG CAPSULE PO SCH (05:00)
[2022-10-12] MEDS ORDERED: chlordiazePOXIDE HCL 10 MG CAPSULE PO ONE (05:00)
== END 2022-10-10 14:27 | disposition left against medical advice (07) | DRG 770 ==
LOC: YASAS 22:05 → Y3N 10-08 01:21
PROVIDERS: ADMIT Allergy & Immunology; ATTEND Surgery
PROC: HZ2ZZZZ Detoxification Services for Substance Abuse Treatment (ICD-10-PCS; principal; 2022-10-08)
DX: F10.230 Alcohol dependence with withdrawal, uncomplicated (principal); F10.282 Alcohol dependence with alcohol-induced sleep disorder; F10.24 Alcohol dependence with alcohol-induced mood disorder; F19.24 Other psychoactive substance dependence with psychoactive substance-induced mood disorder; Z91.81 History of falling; Z87.891 Personal history of nicotine dependence; Z56.0 Unemployment, unspecified; Z59.00 Homelessness unspecified
CPT/HCPCS: 36415; 80053; 85027; 86780; 87389; 93005; 93010; C9803-CS; U0003; U0005